=== PATIENT | male | born 1950 | race Caucasian/White ===

== ENCOUNTER 2016-06-09 07:39 | Day surgery (SDC) | payer MEDICARE ==
[~2016-06-09] VITALS: Ht 162.6 cm; Wt 87.0 kg
[~2016-06-09 07:39] MED LIST: Lactated Ringer's 1,000 ML IV ONE; PANT40TA2 PO; SUCR1ORA2 PO
[2016-06-09] MEDS ORDERED: Propofol 10,000 mCg/mL 20 mL Inj ONE (07:40)
[2016-06-09] MEDS ORDERED: fentaNYL-PF 50 mCg/mL 2 mL Inj ONE (07:40)
[2016-06-09 07:52] VITALS: BP 210/114; PULSE 65; RESP 14; O2SAT 98
--- NOTE | 2016-06-09 08:09 | PCM.HPANE ---
Patient Data Date of Service: Jun 09, 2016 (0805) Surgeon Admitting Provider: Attending Provider:Sandy Motley MD Primary Care Physician:Ignacio Leger MD Other Provider:Joseph Bloom Anesthesia Reason for Visit Combined Gastric And Duodenal Ulcer Ht/WT & BMI Height (Feet): 5 Height (Inches): 4 Weight (Kilograms): 87 Body Mass Index 32.00 Allergies Coded Allergies: Penicillins (Verified Allergy, Severe, RASH, 06/03/14) Past Anesthesia History Anesthesia History: Denies:: Abnormal Airway, Anesthesia Reactions, Difficult Intubation, Fam Anesthesia Reaction, Fam Malignant Hypertherm, Malignant Hyperthermia Diabetes History Hx Diabetes?: No MRSA MRSA: No Medications Hypertension Medication: No Home Meds Incl Beta Poppy: No Discontinued Reported Medications Sucralfate Susp (Carafate Susp)1 Gm/10 Ml Oral.susp1 Gm PO QID Ref 0 06/08/[address] (Protonix)40 Mg [id number] Mg PO DAILY Ref 0 06/08/16 History HEENT History: Positive for:: Dysphagia Denies:: Abnormal Airway Difficult Intubation Hearing Problem Teeth Condition: Missing Teeth Hx of Heart Problems?: No Cardiovascular History: Positive for:: Hypertension Denies:: AICD Atrial Fibrillation Chest Pain Congestive Heart Failure Pacemaker Valvular Heart Disease Hx of Respiratory Problem?: No Respiratory History: Denies:: Tuberculosis Neurological History: Positive for:: CVA (numbness on left side of body and right side of face. Symmetrical face. Strength returned.) Hx of GI Problems?: Yes Gastrointestinal History: Denies:: Cirrhosis Diverticulitis Gall Bladder Disease Gastroesphageal Reflux Hiatal Hernia Liver Disease Rectal Bleeding Musculoskeletal History: Denies:: Joint Replacement Psycho Social History: Denies:: Anxiety Hx Depression Hx Surgeries?: Yes (inguinal hernia, shoulder) Hx Any Other Health Problems?: No Hx Diabetes: No Hx Alcohol Use: No Smoking Status: Never Smoker Stop/Bang Treated for Sleep Apnea?: No Do You Have a CPAP Machine?: No S-Snoring: Do You Snore Loudly: No T-Tired: feel tired, fatigued: No O-Obsered: Observed not breath: Yes P-Blood Pressure: treated: No B- Body Mass Index > 35 kg/m2: No A- Age over 50: Yes N- Neck Large Circumference: No G- Gender Male: Yes YULISA Total Score: 3 YULISA Risk Assessment: Low Risk, <3 Yes Risk Assessment Category Category 1A: Patient has history of documented sleep apnea, and HAS NOT received any narcotic, sedative or anesthesia administration during this stay. Category 1B: Patient has history of documented sleep apnea, and HAS received any narcotic , sedative or anesthesia administration during this stay Category 2: Patient has SUSPECTED Obstructive Sleep Apnea, and HAS received any narcotic , sedative or anesthesia administration during this stay. Category 3: Patient has SUSPECTED Obstructive Sleep Apnea and HAS NOT received narcotic, sedative or anesthesia administration during this stay. Category 4: Outpatient in Procedural Areas with known sleep apnea or who screen positive for High Risk via the STOP/BANG questionnaire. Exam Exam Vital Signs Vital Signs Date Time Temp Pulse Resp B/P Pulse Ox O2 Delivery O2 Flow Rate FiO2 06/09/16 07:52 36.7 65 14 210/114 98 Room Air General Appearance: Alert, Oriented X3, Cooperative HEENT/AIRWAY: MP 2, Other (edentulous) Lungs: Clear to Auscultation Heart: Exam Unremarkable Plan Impression Patient chart reviewed, patient interviewed and anesthestic plan with risks, benefits, and alternatives discussed, and informed consent obtained. NPO Status: > 8hrs ASA Physical Status: ASA3 Severe Disease Anesthetic Plan: GA Bene/Risks/Altern/Consents: Yes HP Complete Prior to Induction: Yes Other discussed his untreated HTN and risk of stroke with pt, encouraged follow up with PCP. Robert Sosa MD Jun 09, 2016 08:09
[2016-06-09] MEDS ORDERED: Lactated Ringer's 1,000 ML IV SCH (08:10)
[2016-06-09] MEDS ORDERED: Ondansetron 2 mg/mL 2 mL Inj IVPUSH PRN (08:10)
[2016-06-09] MEDS ORDERED: MetoCLOpramide 5 mg/mL 2 mL Inj IVPUSH PRN (08:10)
--- NOTE | 2016-06-09 08:48 | PCM.ANEP2 ---
Post Anesthesia Evaluation ASA/CMS Post Anesthesia VS in Patient's Normal Range?: Yes Resp Stable; Airway Patent?: Yes CV Function & Hydration Stable: Yes Mental Status Recovered?: Yes Pain control Satisfactory?: Yes N/V Control Satisfactory?: Yes Robert Sosa MD Jun 09, 2016 08:48
--- NOTE | 2016-06-09 08:48 | PCM.ANEP1 ---
Post Anesthesia Phase 1 PACU Phase 1 Assessment Date of Service: Jun 09, 2016 (0805) Vital Signs 96%, 36.5, 12, 164/87, 95 Vital Signs Date Time Temp Pulse Resp B/P Pulse Ox O2 Delivery O2 Flow Rate FiO2 06/09/16 07:52 36.7 65 14 210/114 98 Room Air Anesthetic Administered: GA Level of Alertness: Awake, talking ROQUE's with Equal Strength: Yes Pain: No Nausea or Vomiting: No Oxygen Delivery: Room Air Lungs: Clear to Auscultation Dermatome Level: Full Sensation Summary at baseline Robert Sosa MD Jun 09, 2016 08:48
[2016-06-09 08:50] VITALS: BP 164/87; PULSE 62; RESP 14; O2SAT 94
[2016-06-09 09:00] VITALS: BP 156/86; PULSE 61; RESP 16; O2SAT 96
--- NOTE | 2016-06-09 10:38 | ENDO ---
[address] [address] ENDOSCOPY PROCEDURE PATIENT: CAROL GREENE : 1950 MR#: [id number] ADMIT: 06/09/2016 JOB ID: [id number] DATE: 06/09/2016 PROCEDURE: Esophagogastroduodenoscopy. INDICATION: The patient with a history of food bolus obstruction who had a previously seen Schatzki's as well as a gastric and duodenal ulcer. The patient's ASA classification, Mallampati score and medications as per anesthesia report. INSTRUMENT USED: GIF H 180 J. PROCEDURE DETAILS: After informed consent was obtained, the patient was brought into the GI suite, where he was placed on oxygen via nasal cannula and monitored with continuous pulse oximeter, telemetry and blood pressure monitoring. A time-out was performed. Then, he was placed in the left lateral decubitus position and medications were administered for sedation. A bite block was placed. The standard EGD scope was inserted through the bite block and advanced under direct visualization to the second portion of the duodenum without difficulty. FINDINGS: 1. Normal appearing duodenal bulb, first and second portion. 2. Normal appearing pylorus, antrum and gastric body. 3. Retroflexed views in the gastric body revealed a normal-appearing cardia and fundus. 4. The GE junction was at approximately 41 cm. It was slightly irregular. Multiple biopsies were obtained. 5. The remainder of the esophagus appeared otherwise unremarkable. Multiple biopsies were obtained in the midesophagus secondary to the patient's history of food bolus obstruction. IMPRESSION: Slightly irregular gastroesophageal junction, otherwise normal examination. RECOMMENDATIONS: 1. Recommend PPI 20 mg p.o. daily. 2. Followup in GI clinic in 4-8 weeks. COMPLICATIONS: None. ESTIMATED BLOOD LOSS: Less than 5 mL.
--- NOTE | 2016-06-10 14:59 | PATH ---
SURGICAL PATHOLOGY Attending Physician:Peter Heller CASE STATUS: Signed Out PATIENT NAME: CAROL GREENE PID: [id number] : 1950 DATE COLLECTED:06/09/2016 16:13 SPECIMEN: 1: Esophagus, Biopsy 2: Esophagus, Biopsy CLINICAL HISTORY: 1). GASTROESOPHAGEAL JUNCTION BIOPSY 2). MID ESOPHAGUS BIOPSY FINAL DIAGNOSIS: 1.GASTROESOPHAGEAL JUNCTION BIOPSY: SQUAMOCOLUMNAR MUCOSA WITH MILD ACTIVE ESOPHAGITIS WITH INCREASED EOSINOPHILS (SEE COMMENT). Negative for intestinal/Landeros' s metaplasia. Negative for dysplasia and malignancy. 2.MID ESOPHAGUS BIOPSY: SQUAMOUS MUCOSA WITH MILD ACTIVE INFLAMMATION AND INCREASED EOSINOPHILS, (SEE COMMENT). Negative for intestinal/Landeros' s metaplasia. Negative for dysplasia and malignancy. ICD10 code K20.9 NOTE: There are increased eosinophils in both the gastroesophageal junction and mid esophagus biopsies, up to 20 per high-power field in the GEJ biopsy and up to 5 per high-power field in the mid esophagus biopsy. There are no micro abscesses or spongiosis. This level of eosinophilia raises the possibility of eosinophilic esophagitis, but not all of the typical histologic features are present. Other causes of esophageal eosinophilia include drug reaction and food allergy. Correlation with clinical and endoscopic findings is necessary for a definitive diagnosis. GROSS DESCRIPTION: The specimen is received in two formalin filled containers labeled with the patient's name. 1). The specimen is sublabeled " GEJ " and consists of a 0.3 x 0.3 x 0.2 CM portion of tissue which is entirely submitted in cassette 1A. 2). The specimen is sublabeled "mid esophagus" and consists of a 0.3 x 0.2 x 0.1 CM portion of tissue which is entirely submitted in cassette 2A. 06/09/2016 DAC MICRO DESCRIPTION: See diagnosis. ICD-9 CODES: CPT CODES: 1: 27263 2: 45857 Electronically Signed Out Cata Wong MD [facility] Pathology [facility] [address], [place] [address] Technical component performed at [facility], [facility] [address], [place], [address]
== END 2016-06-09 23:59 | disposition home or self-care (01) ==
LOC: END 07:39
PROVIDERS: ATTEND Internal Medicine Gastroenterology
DX: K20.9 Esophagitis, unspecified (principal); Z87.11 Personal history of peptic ulcer disease; I10 Essential (primary) hypertension; Z86.73 Personal history of transient ischemic attack (TIA), and cerebral infarction without residual deficits
CPT/HCPCS: 43239; 88305; J2250; J3010; J7120